=== PATIENT | male | born 1940 | race Caucasian/White ===

== ENCOUNTER 2018-08-02 07:00 | Day surgery (SDC) | payer MEDICARE ==
[2018-07-28 14:37] VITALS: BMI 43.8
[~2018-08-02 07:00] MED LIST: LACTATED RINGERS 1,000 ML IV SCH; LIDOCAINE 1% 20 ML VIAL (10MG/ML) FOR IV START INTRADERMA PRN; MIDAZOLAM (PF) 2 MG/2 ML VIAL IV PRN
[2018-08-02 07:18] VITALS: RESP 16; TEMP 98.5
[2018-08-02 07:31] LABS: Glucose,Whole Blood 104 mg/dL (75-99)
[2018-08-02] MEDS ORDERED: PROPOFOL 10 MG/ML 20 ML VIAL IV ONE (08:16)
[2018-08-02] MEDS ORDERED: LIDOCAINE 1% INJ 10MG/ML (20 ML MDV) ONE (08:16)
--- NOTE | 2018-08-02 08:50 | P.PCN ---
Date of Procedure: 08/02/18 Procedure(s) Performed: Procedure: Total colonoscopy. Preoperative diagnosis: Rectal bleeding. Postoperative diagnosis: Low-grade internal hemorrhoids not bleeding at the time of the exam, otherwise, exam to the cecum within normal limits. Preparation: HalfLytely prep. Sedation: Was provided by anesthesia. Brief clinical history: The patient is a 77-year-old male who was seen in the office earlier this month because of an episode of rectal bleeding on 07/20/2018. The patient had no prior colonoscopy. There was no significant change in bowel habits and he had no further bleeding since. Procedure: With the patient on his left lateral decubitus position and after informed consent and adequate sedation, the perianal area was inspected and it did not show any fissures or fistulas. There were no masses felt on digital rectal examination. The Olympus CFH 190L video colonoscope was then inserted in the rectum in the usual fashion and advanced to the cecum. The mucosa appeared healthy. No polyps or tumors were seen or any obvious diverticular disease or bleeding. I retroflexed the endoscope in the rectum before the endoscope was withdrawn. Low-grade internal hemorrhoids were noted without any evidence of bleeding, and there was an occasional small ectatic blood vessel close to the a norectal junction with minimal friability. The patient tolerated the procedure well. Plan: The patient was reassured. Discussed dietary measures and local care for hemorrhoids. He will follow up with you as planned. No further workup is recommended.
[2018-08-02 08:59] VITALS: BP 160/78; PULSE 64
== END 2018-08-02 09:17 | disposition home or self-care (01) ==
LOC: ORWHC2ENDO 07:00
DX: K62.5 Hemorrhage of anus and rectum (principal); K64.8 Other hemorrhoids; E11.9 Type 2 diabetes mellitus without complications; I10 Essential (primary) hypertension; Z79.899 Other long term (current) drug therapy
CPT/HCPCS: 45378; J2001; J2704

== ENCOUNTER → 2018-09-26 | Outpatient (CLI) | payer MEDICARE ==
--- NOTE | 2018-09-27 10:03 | XR ---
Left knee HISTORY: Left knee pain 3 views of the left knee There is spurring at the patellofemoral joint. Chondrocalcinosis is present in the medial lateral com partments. Joint space loss present at the patellofemoral joint greater than medial compartment. Alig nment and bone mineralization are maintained. No fracture or dislocation. There are vascular calcific ations noted incidentally. IMPRESSION: Chondrocalcinosis, consider crystal deposition arthropathy, chondromalacia patella, osteo arthritis.
== END | disposition home or self-care (01) ==
LOC: RADXRMAIN 16:49
PROVIDERS: ATTEND Physician Assistant
DX: M11.262 Other chondrocalcinosis, left knee (principal)